=== PATIENT | male | born 1955 | race American Indian/Alaskan Native ===

== ENCOUNTER 2017-10-16 10:38 | Emergency (ER) | payer BC, OTHER ==
[2017-10-16 11:43] VITALS: BP 182/86
[2017-10-16] MEDS ORDERED: TORADOL IM ONE (13:40)
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
== END 2017-10-16 14:07 | disposition home or self-care (01) ==
LOC: ED 10:38
DX: S46.911A Strain of unspecified muscle, fascia and tendon at shoulder and upper arm level, right arm, initial encounter (principal); I10 Essential (primary) hypertension; M10.9 Gout, unspecified; V89.2XXA Person injured in unspecified motor-vehicle accident, traffic, initial encounter; Y93.89 Activity, other specified; Y92.89 Other specified places as the place of occurrence of the external cause; Y99.8 Other external cause status
CPT/HCPCS: 96372; 99282; J1885

== ENCOUNTER 2018-09-23 11:19 | Outpatient (CLI) | payer BC ==
[2018-09-23 11:33] LABS: Hemoglobin 12.1 gm/dl (11.8-15.2); Mean Corpuscular HGB Conc 33 % (32-34); Mean Corpuscular Hemoglobin 29 pg (28-32); Mean Corpuscular Volume 88 fl (84-94); Platelet Count 260 K/mm3 (140-440); Red Blood Count 4.23 M/mm3 (3.65-5.03); Red Cell Distribution Width 14.8 % (13.2-15.2)
[2018-09-23 11:56] LABS: Albumin 3.8 g/dL (3.9-5); Calcium 9.2 mg/dL (8.4-10.2)
== END 2018-09-23 11:20 | disposition home or self-care (01) ==
LOC: LAB 11:19
PROVIDERS: ATTEND Internal Medicine Nephrology
DX: R94.4 Abnormal results of kidney function studies (principal)
CPT/HCPCS: 36415; 80048; 82040; 84100; 85027

== ENCOUNTER 2018-10-28 06:41 | Outpatient (CLI) | payer BC ==
[2018-10-28 16:48] LABS: Creatinine,Urine 153.4 mg/dL (0.1-20.0)
[2018-10-28 16:50] LABS: Alanine Aminotransferase 18 units/L (7-56); Albumin 3.9 g/dL (3.9-5); BUN/Creatinine Ratio 14; Blood Urea Nitrogen 23 mg/dL (9-20); Calcium 9.2 mg/dL (8.4-10.2); Hemolysis Index 2
[2018-10-28 16:52] LABS: Bilirubin,Direct < 0.2 mg/dL (0-0.2)
[2018-10-28 16:59] LABS: Bilirubin,Urine NEG (Negative); Blood,Urine NEG (Negative); Color,Urine Yellow (Yellow); Protein,Urine <15 mg/dL mg/dL (Negative); Urobilinogen,Urine < 2.0 mg/dL (<2.0)
[2018-11-01 06:18] LABS: Albumin 3.6 g/dL (3.8-4.8); Gamma Globulin 1.5 g/dL (0.8-1.7)
== END 2018-10-28 06:42 | disposition home or self-care (01) ==
LOC: LAB 06:41
PROVIDERS: ATTEND Internal Medicine Nephrology
DX: R94.4 Abnormal results of kidney function studies (principal); I10 Essential (primary) hypertension; E78.5 Hyperlipidemia, unspecified; E11.9 Type 2 diabetes mellitus without complications; E66.9 Obesity, unspecified
CPT/HCPCS: 36415; 80048; 80076; 81001; 82565; 82570; 82575; 84100; 84165

== ENCOUNTER 2019-02-24 11:00 | Outpatient (CLI) | payer BC | END 2019-02-24 11:01 | disposition home or self-care (01) | LOC: SLR 11:00 | PROVIDERS: ATTEND Otolaryngology | DX: G47.33 Obstructive sleep apnea (adult) (pediatric) (principal); R40.0 Somnolence; R06.83 Snoring; E78.5 Hyperlipidemia, unspecified; E66.9 Obesity, unspecified; I11.0 Hypertensive heart disease with heart failure; I50.9 Heart failure, unspecified; E78.00 Pure hypercholesterolemia, unspecified | CPT/HCPCS: 95811 ==

== ENCOUNTER 2021-11-14 07:53 | Emergency (ER) | payer MEDICARE ==
[2021-11-14 08:15] VITALS: BP 116/67
[2021-11-14] MEDS ORDERED: ONDANSETRON 4 MG/2 ML INJ IV ONE (08:38)
[2021-11-14] MEDS ORDERED: SODIUM CHLORIDE 0.9% 1000 ML 1,000 ML IV ONE (08:38)
--- NOTE | 2021-11-14 08:40 | Emergency Department Report ---
ED GI Bleed HPI - General Chief complaint: Nausea/Vomiting/Diarrhea Stated complaint: DIARRHEA/BLOOD IN STOOL Time Seen by Provider: 11/14/21 08:24 Source: patient Mode of arrival: Ambulatory Limitations: No Limitations - History of Present Illness Initial comments: 36-year-old -[place] male with a past medical history of BPH, CHF, hypertension, gout, PE currently on Eliquis presents to the ER today with complaints of bright red blood per rectum this morning. Patient states that he has been having diarrhea since Thursday. He reports more than 10 times per day of diarrhea. He states that this morning when he wiped after using the bathroom, he noticed bright red blood on the tissue. He denies any blood the toilet bowl. He states that this has occurred twice this morning. He reports low abdominal pain and some rectal burning. He denies any nausea or vomiting. He states that he is at "slight" fever. He denies any antibiotic use in the past month, recent travel, or bad food intake. He denies similar symptoms in the past. He denies any abdominal surgeries in the past. He has been vaccinated against COVID-19. complaint: blood on toilet paper -: This morning - Related Data Home Medications Medication Instructions Recorded Confirmed Last Taken Allopurinol 100 mg PO DAILY 09/06/18 09/06/18 Unknown Aspirin 325 mg PO DAILY 09/06/18 09/06/18 Unknown AtorvaSTATin 80 mg PO HS 09/06/18 09/06/18 Unknown Docusate Sodium 100 mg PO BID PRN 09/06/18 09/06/18 Unknown Furosemide 40 mg PO DAILY 09/06/18 09/06/18 Unknown Glipizide 2.5 mg PO BID 09/06/18 09/06/18 Unknown Isosorbide Dinitrate 5 mg PO DAILY 09/06/18 09/06/18 Unknown Tamsulosin 0.4 mg PO BID 09/06/18 09/06/18 Unknown amLODIPine 5 mg PO DAILY 09/06/18 09/06/18 Unknown Previous Rx's Medication Instructions Recorded Last Taken Type Acetaminophen [Acetaminophen TAB] 650 mg PO Q4H PRN #15 tablet 09/09/18 Unknown Rx Spironolactone [Aldactone] 25 mg PO QDAY #30 tablet 09/09/18 Unknown Rx carvediloL [Coreg] 6.25 mg PO BID #60 tablet 09/09/18 Unknown Rx lisinopriL [Zestril TAB] 20 mg PO QDAY #30 tablet 09/09/18 Unknown Rx Famotidine [Pepcid] 20 mg PO BID #6 tablet 06/07/20 Unknown Rx Sulfamethoxazole/Trimethoprim 1 each PO BID #14 tablet 06/07/20 Unknown Rx [Bactrim DS TAB] predniSONE [Deltasone] 20 mg PO BID #6 tab 06/07/20 Unknown Rx Hyoscyamine Subl [Levsin Sl 0.125 0.125 mg SL Q4HR PRN #20 tablet 11/14/21 Unknown Rx TAB] Allergies Allergy/AdvReac Type Severity Reaction Status Date / Time No Known Allergies Allergy Verified 10/16/17 11:38 ED Review of Systems ROS: Stated complaint: DIARRHEA/BLOOD IN STOOL Other details as noted in HPI Comment: All other systems reviewed and negative Constitutional: denies: chills, fever Eyes: denies: eye pain, eye discharge, vision change ENT: denies: ear pain, throat pain Respiratory: denies: cough, shortness of breath, wheezing Cardiovascular: denies: chest pain, palpitations Gastrointestinal: abdominal pain, diarrhea, hematochezia Genitourinary: denies: urgency, dysuria, frequency, hematuria, discharge, testicular pain, testicular mass Musculoskeletal: denies: back pain, joint swelling, arthralgia Skin: denies: rash, lesions, change in hair/nails Neurological: denies: headache, weakness, numbness, paresthesias, confusion, abnormal gait, vertigo Psychiatric: denies: anxiety, depression, auditory hallucinations, visual hallucinations, homicidal thoughts, suicidal thoughts ED Past Medical Hx - Past Medical History Previous Medical History?: Yes Hx Hypertension: Yes Hx Congestive Heart Failure: Yes Hx Diabetes: Yes Hx Arthritis: Yes Hx Asthma: No Hx COPD: No Hx HIV: No Additional medical history: Gout - Surgical History Past Surgical History?: Yes Additional Surgical History: right knee replacement - Social History Smoking Status: Never Smoker - Medications Home Medications: Home Medications Medication Instructions Recorded Confirmed Last Taken Type Allopurinol 100 mg PO DAILY 09/06/18 09/06/18 Unknown History Aspirin 325 mg PO DAILY 09/06/18 09/06/18 Unknown History AtorvaSTATin 80 mg PO HS 09/06/18 09/06/18 Unknown History Docusate Sodium 100 mg PO BID PRN 09/06/18 09/06/18 Unknown History Furosemide 40 mg PO DAILY 09/06/18 09/06/18 Unknown History Glipizide 2.5 mg PO BID 09/06/18 09/06/18 Unknown History Isosorbide Dinitrate 5 mg PO DAILY 09/06/18 09/06/18 Unknown History Tamsulosin 0.4 mg PO BID 09/06/18 09/06/18 Unknown History amLODIPine 5 mg PO DAILY 09/06/18 09/06/18 Unknown History Acetaminophen [Acetaminophen TAB] 650 mg PO Q4H PRN #15 tablet 09/09/18 Unknown Rx Spironolactone [Aldactone] 25 mg PO QDAY #30 tablet 09/09/18 Unknown Rx carvediloL [Coreg] 6.25 mg PO BID #60 tablet 09/09/18 Unknown Rx lisinopriL [Zestril TAB] 20 mg PO QDAY #30 tablet 09/09/18 Unknown Rx Famotidine [Pepcid] 20 mg PO BID #6 tablet 06/07/20 Unknown Rx Sulfamethoxazole/Trimethoprim 1 each PO BID #14 tablet 06/07/20 Unknown Rx [Bactrim DS TAB] predniSONE [Deltasone] 20 mg PO BID #6 tab 06/07/20 Unknown Rx Hyoscyamine Subl [Levsin Sl 0.125 0.125 mg SL Q4HR PRN #20 tablet 11/14/21 U nknown Rx TAB] ED Physical Exam - General Limitations: No Limitations General appearance: alert, in no apparent distress - Head Head exam: Present: atraumatic, normocephalic, normal inspection - Neck Neck exam: Present: normal inspection, meningismus, full ROM - Respiratory Respiratory exam: Present: normal lung sounds bilaterally. Absent: respiratory distress, wheezes, rales, rhonchi, stridor - Cardiovascular Cardiovascular Exam: Present: regular rate, normal rhythm, normal heart sounds - GI/Abdominal GI/Abdominal exam: Present: soft, tenderness (Lower abdomen). Absent: distended, guarding, rebound, rigid - Rectal Rectal exam: Present: normal rectal tone, heme (+) stool, other ([employer] present). Absent: black stool, bloody stool, fecal impaction, hemorrhoids, mass, tenderness, prostate enlargement - Neurological Exam Neurological exam: Present: alert, oriented X3, CN II-XII intact, normal gait - Psychiatric Psychiatric exam: Present: normal affect, normal mood - Skin Skin exam: Present: intact ED Course Vital Signs 11/14/21 11/14/21 08:12 11:30 Temperature 98.2 F 98.2 F Pulse Rate 77 52 L Respiratory 16 16 Rate Blood Pressure 116/67 [Left] O2 Sat by Pulse 99 100 Oximetry ED Medical Decision Making - Lab Data Result diagrams: 11/14/21 09:11 11/14/21 09:11 - Radiology Data Radiology results: report reviewed Patient: RIGO POTTS JR MR#: [id number] : 1955 Acct:[id number] Age/Sex: 66 / M ADM Date: 11/14/21 Loc: ED Attending Dr: Ordering Physician: BERTA AGUAYO Date of Service: 11/14/21 Procedure(s): CT abdomen pelvis w con Accession Number(s): [id number] cc: BERTA AGUAYO CT ABDOMEN AND PELVIS WITH CONTRAST INDICATION / CLINICAL INFORMATION: Lower abdominal pain with diarrhea and bloody stool. TECHNIQUE: Axial CT images were obtained through the abdomen and pelvis after Omnipaque 300, 60 cc IV contrast. All CT scans at this location are performed using CT dose reduction for ALARA by means of automated exposure control. COMPARISON: None available. FINDINGS: LOWER CHEST: No significant abnormality. LIVER: No significant abnormality. GALLBLADDER: No significant abnormality. BILE DUCTS: No significant abnormality. PANCREAS: No significant abnormality. SPLEEN: No significant abnormality. ADRENALS: No significant abnormality. RIGHT KIDNEY / URETER: Ventilatory hypertrophy. LEFT KIDNEY / URETER: Surgically absent. STOMACH / SMALL BOWEL: No significant abnormality. COLON: No significant abnormality. APPENDIX: No significant abnormality. PERITONEUM: No free fluid. No free air. No fluid collection. LYMPH NODES: No significant adenopathy. VASCULAR STRUCTURES: No significant abnormality. URINARY BLADDER: No significant abnormality. REPRODUCTIVE ORGANS: No significant abnormality. ADDITIONAL FINDINGS: None. SKELETAL SYSTEM: Sclerosis with mild lytic change and cortical thickening is noted at the left pelvis. IMPRESSION: 1. Negative for obstruction or localized inflammation. 2. 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 Signer Name: Neil Resendiz MD Signed: 11/14/2021 11:01 AM Workstation Name: [id number] Transcribed By: ES Dictated By: Neil Resendiz MD Electronically Authenticated By: Neil Resendiz MD Signed Date/Time: 11/14/21 1101 DD/ 1047 TD/TT: - Medical Decision Making All labs reviewed -- Hemocult was positive a bedside but white count normal, H/H stable, platelet count normal; CMP show renal insufficiency but not any worse than patient previous renal functions, electrolytes and LFTs were normal; urinalysis negative UTI; CT abdomen pelvis showed Negative for obstruction or localized inflammation. Patient sitting comfortably on recliner. He denies any more diarrhea since receiving meds and some fluids. He has not vomited during stay. He is not toxic or ill-appearing. He has a nonsurgical abdominal exam. He is neurologically intact his gait is normal. His VS stable. Discussed results with patient. The BRB on tissue could be related to irritation from diarrhea any symptoms likely related to a viral illness but I still recommend that he follows up with GI for colonoscopy. He states that he actually does have an appoin tment for GI based on till December and I recommend that he call to see if he could get a sooner appointment. In the meantime he can also follow-up with his primary care doctor. He Expressed understanding agree with plan. He understands to return to the ER if anything worsens. - Differential Diagnosis diverticulitis, colitis, gastroenteritis, severe anemia, C diff Critical care attestation.: If time is entered above; I have spent that time in minutes in the direct care of this critically ill patient, excluding procedure time. ED Disposition Clinical Impression: Diarrhea, Hematochezia, Chronic renal insufficiency Disposition: HOME / SELF CARE / HOMELESS Is pt being admited?: No Does the pt Need Aspirin: No Condition: Stable Instructions: Rectal Bleeding, Diarrhea, Adult, [id number] Additional Instructions: I recommend that you take the Levsin as prescribed to help with any cramping and also help with diarrhea. Recommend that you increase your fluid intake for the next couple days if you continue to have diarrhea. Follow-up closely with your primary care doctor or GI specialist next week. Return to the ER if your symptoms changes or worsens in any way. Prescriptions: Hyoscyamine Subl [Levsin Sl 0.125 TAB] 0.125 mg SL Q4HR PRN #20 tablet PRN Reason: Spasms Referrals: YAMILETH PRICE PA [Primary Care Provider] - 3-5 Days Forms: Work/School Release Form(ED) Time of Disposition: 11:17
[2021-11-14] MEDS ORDERED: HYOSCYAMINE SUBL 0.125 MG TAB SL ONE (08:58)
[2021-11-14 09:12] LABS: Bilirubin,Urine NEG (Negative); Blood,Urine NEG (Negative); Color,Urine Yellow (Yellow); Urobilinogen,Urine < 2.0 mg/dL (<2.0)
[2021-11-14 09:32] LABS: Hematocrit 37.9 % (35.5-45.6); Hemoglobin 11.9 gm/dl (11.8-15.2); Mean Corpuscular HGB Conc 31 % (32-34); Mean Corpuscular Volume 88 fl (84-94); Platelet Count 239 K/mm3 (140-440); Red Blood Count 4.31 M/mm3 (3.65-5.03); Red Cell Distribution Width 15.5 % (13.2-15.2)
[2021-11-14 09:39] LABS: Protein,Urine >500 mg/dL (Negative); RBC,Urine < 1.0 /HPF (0.0-6.0); WBC,Urine < 1.0 /HPF (0.0-6.0)
[2021-11-14 10:02] LABS: Albumin 3.9 g/dL (3.9-5); Calcium 8.8 mg/dL (8.4-10.2)
--- NOTE | 2021-11-14 11:05 | Cat Scan Report ---
CT ABDOMEN AND PELVIS WITH CONTRAST INDICATION / CLINICAL INFORMATION: Lower abdominal pain with diarrhea and bloody stool. TECHNIQUE: Axial CT images were obtained through the abdomen and pelvis after Omnipaque 300, 60 cc IV contrast. All CT scans at this location are performed using CT dose reduction for ALARA by means of automated exposure control. COMPARISON: None available. FINDINGS: LOWER CHEST: No significant abnormality. LIVER: No significant abnormality. GALLBLADDER: No significant abnormality. BILE DUCTS: No significant abnormality. PANCREAS: No significant abnormality. SPLEEN: No significant abnormality. ADRENALS: No significant abnormality. RIGHT KIDNEY / URETER: Ventilatory hypertrophy. LEFT KIDNEY / URETER: Surgically absent. STOMACH / SMALL BOWEL: No significant abnormality. COLON: No significant abnormality. APPENDIX: No significant abnormality. PERITONEUM: No free fluid. No free air. No fluid collection. LYMPH NODES: No significant adenopathy. VASCULAR STRUCTURES: No significant abnormality. URINARY BLADDER: No significant abnormality. REPRODUCTIVE ORGANS: No significant abnormality. ADDITIONAL FINDINGS: None. SKELETAL SYSTEM: Sclerosis with mild lytic change and cortical thickening is noted at the left pelvis . IMPRESSION: 1. Negative for obstruction or localized inflammation. 2. 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 Signer Name: Neil Resendiz MD Signed: 11/14/2021 11:01 AM Workstation Name: [id number]
[2021-11-14 11:32] LABS: Anisocytosis 1+; Basophils % (Manual) 0 % (0.0-1.8); Total Cells Counted 100
[2021-11-14 11:35] LABS: Platelet Estimate Consistent w Auto
== END 2021-11-14 11:30 | disposition home or self-care (01) ==
LOC: ED 07:53
DX: K92.1 Melena (principal); I11.0 Hypertensive heart disease with heart failure; N18.9 Chronic kidney disease, unspecified; I50.9 Heart failure, unspecified; E11.9 Type 2 diabetes mellitus without complications; M19.90 Unspecified osteoarthritis, unspecified site; Z98.890 Other specified postprocedural states
CPT/HCPCS: 36415; 74177; 80053; 81001; 82271; 83690; 85007; 85025; 96361; 96374; 99284; J2405; J7030; Q9967; Q0162